=== PATIENT | male | born 1990 | race Hispanic/Latino ===

== ENCOUNTER 2017-10-24 12:58 | Emergency (ER) | payer OTHER, BC ==
[2017-10-24 13:08] VITALS: BP 136/93; PULSE 50; RESP 16; TEMP 98.1; O2SAT 98
--- NOTE | 2017-10-24 13:37 | C.PDOC ---
History Of Present Illness 27 year old male presents to the ED c/o left ankle pain. Patient reports he twisted his ankle when he accidentally stepped into a pothole today at 12:00. Patient is c/o pain to the side of his ankle and front foot. Patient is ambulatory at the ED. Patient denies other trauma, weakness, numbness. L ANKLE INJURY @ 12 PM. TWISTED WHEN ACCID STEPPED INTO POTHOLE. CO PAIN SIDE OF ANKLE AND FRONT OF FOOT. NO OTHER TRAUMA. +AMBUL. EXAM NAD EXT LLE +L LAT MALL SWELL MILD W GEN TEND. AROM W PAIN. NO DEFORM SKIN INTACT NO ERYTHEMA REMAINDER NEG Time Seen by Provider: 10/24/17 13:23 Chief Complaint (Nursing): Lower Extremity Problem/Injury History Per: Patient History/Exam Limitations: no limitations Onset/Duration Of Symptoms: Days Current Symptoms Are (Timing): Still Present Recent travel outside of the [place]: No Additional History Per: Patient - Ankle/Foot Description Of Injury: Twisted Currently Unable To: Bend Or Move Past Medical History Reviewed: Historical Data, Nursing Documentation, Vital Signs Vital Signs: Last Vital Signs Temp 98.1 F 10/24/17 13:06 Pulse 50 L 10/24/17 13:06 Resp 16 10/24/17 13:06 BP 136/93 H 10/24/17 13:06 Pulse Ox 98 10/24/17 13:39 - Medical History PMH: HTN Surgical History: No Surg Hx - [facility] TETANUS TOXOID ADMINIST (11/16/12) Family History: States: Unknown Family Hx - Social History Hx Tobacco Use: No Hx Alcohol Use: Yes Hx Substance Use: No - Immunization History Hx Tetanus Toxoid Vaccination: No Hx Influenza Vaccination: No Hx Pneumococcal Vaccination: No Review Of Systems Constitutional: Negative for: Fever, Chills Cardiovascular: Negative for: Chest Pain Respiratory: Negative for: Shortness of Breath Gastrointestinal: Negative for: Abdominal Pain Musculoskeletal: Positive for: Foot Pain Skin: Negative for: Rash Neurological: Negative for: Weakness, Numbness Physical Exam - Physical Exam Appears: Non-toxic, No Acute Distress Skin: Normal Color, Warm, Dry, No Ecchymosis Head: Atraumatic, Normacephalic Eye(s): bilateral: Normal Inspection Nose: No Discharge Oral Mucosa: Moist Neck: Normal ROM, Supple Extremity: Normal ROM, Tenderness (left ankle lateral malleolus), Capillary Refill (< 2 seconds), No Deformity, Swelling (left ankle lateral malleolus) Pulses: Left Dorsalis Pedis: Normal, Right Dorsalis Pedis: Normal Neurological/Psych: Oriented x3, Normal Motor, Normal Sensation Gait: Steady ED Course And Treatment O2 Sat by Pulse Oximetry: 98 (On RA) Pulse Ox Interpretation: Normal Medical Decision Making Medical Decision Making: Impression: left foot pain Plan: * Left ankle X-Ray * Left foot X-Ray Disposition Counseled Patient/Family Regarding: Studies Performed, Diagnosis, Need For Followup - Disposition [facility]: [facility]] [facility] [Outside] Disposition: HOME/ ROUTINE Disposition Time: 13:38 Condition: IMPROVED Additional Instructions: TAKE MOTRIN/AND OR TYLENOL DIRECTED FOR PAIN. KEEP ELEVATED, ICE TO AFFECTED AREA. Instructions: Ankle Sprain (DC) Forms: [facility] (Kazakh), Work Excuse - Clinical Impression Clinical Impression: Ankle sprain - Scribe Statement The provider has reviewed the documentation as recorded by the Scribe Maulik Gutierrez All medical record entries made by the Scribe were at my direction and personally dictated by me. I have reviewed the chart and agree that the record accurately reflects my personal performance of the history, physical exam, medical decision making, and the department course for this patient. I have also personally directed, reviewed, and agree with the discharge instructions and disposition. Orthopedic Care Application Of:: Ankle Air Cast
--- NOTE | 2017-10-24 14:24 | RAD ---
PROCEDURE: Left Foot Radiographs. HISTORY: TRAUMA COMPARISON: None. FINDINGS: BONES: Normal. No fracture. JOINTS: Normal. SOFT TISSUES: Normal. OTHER FINDINGS: None. IMPRESSION: Normal left foot radiographs.
--- NOTE | 2017-10-24 14:25 | RAD ---
PROCEDURE: Left Ankle Radiographs. HISTORY: TRAUMA COMPARISON: None FINDINGS: BONES: Normal. No fracture. JOINTS: Normal. No osteoarthritis. Ankle mortise maintained. Talar dome intact SOFT TISSUES: Mild lateral soft tissue swelling. OTHER FINDINGS: None. IMPRESSION: No acute fracture. Mild lateral soft tissue swelling.
== END 2017-10-24 13:59 | disposition home or self-care (01) ==
LOC: C.ER 12:58
DX: S93.402A Sprain of unspecified ligament of left ankle, initial encounter (principal); X50.9XXA Other and unspecified overexertion or strenuous movements or postures, initial encounter